=== PATIENT | male | born 1955 | race Caucasian/White ===

== ENCOUNTER 2017-08-21 07:35 | Emergency (ER) | payer OTHER ==
[~2017-08-21] VITALS: Ht 170.2 cm; Wt 63.5 kg
[2017-08-21] MEDS ORDERED: SEROQUEL100 MG PO (07:43)
[2017-08-21] MEDS ORDERED: ABILIFY5 MG PO (07:43)
--- NOTE | 2017-08-24 07:19 | EKG ---
[facility] [address] [facility] [place], [place] [address] Signed Normal sinus rhythm Early repolarization Normal ECG Confirmed by GRUPO ROLLINS MD ([id number]) on 08/24/2017 7:19:27 AM Electronically Signed By: GRUPO ROLLINS MD 08/24/17 0719 PATIENT NAME: CHEYENNE YOON Electrocardiogram DATE OF : 59 PHYSICIAN: GRUPO ROLLINS MD REPORT #: [id number] REPORT IS CONFIDENTIAL AND NOT TO BE RELEASED WITHOUT AUTHORIZATION
== END 2017-08-21 12:37 | disposition short-term general hospital (02) ==
LOC: ED 07:35
DX: I30.9 Acute pericarditis, unspecified (principal); Z79.899 Other long term (current) drug therapy
CPT/HCPCS: 71045; 71260; 80053; 83690; 84484; 85025; 85379; 93005; 93010; 96361; 96374; 99285; J1885; J7040; Q9967